=== PATIENT | female | born 1985 | race Caucasian/White ===

== ENCOUNTER 2016-09-06 15:50 | Emergency (ER) | payer BC ==
[2016-09-06] MEDS ORDERED: ASPIRIN 81 MG CHEW TAB ONE (16:02)
== END 2016-09-06 17:21 | disposition home or self-care (01) ==
LOC: ER 15:50
DX: R07.2 Precordial pain (principal); I48.0 Paroxysmal atrial fibrillation; Z79.01 Long term (current) use of anticoagulants; Z79.899 Other long term (current) drug therapy; Z79.82 Long term (current) use of aspirin
CPT/HCPCS: 36415; 71010; 80053; 82550; 83735; 84484; 85025; 85610; 85730; 93005

== ENCOUNTER 2016-09-11 23:21 | Emergency (ER) | payer BC ==
[2016-09-12] MEDS ORDERED: ASPIRIN 81 MG CHEW TAB ONE (00:20)
== END 2016-09-12 01:10 | disposition home or self-care (01) ==
LOC: ER 23:21
DX: R07.2 Precordial pain (principal); Z79.899 Other long term (current) drug therapy; Z79.82 Long term (current) use of aspirin
CPT/HCPCS: 36415; 71010; 80053; 82550; 83735; 84484; 85025; 85610; 85730; 93005